=== PATIENT | male | born 1990 | race Caucasian/White ===

== ENCOUNTER 2021-12-12 04:35 | Emergency (ER) | payer OTHER ==
[~2021-12-12] VITALS: Ht 188 cm; Wt 95.3 kg
[2021-12-12 04:35] VITALS: BP 110/69
--- NOTE | 2021-12-12 04:38 | NUR ---
MONO COMER, TAKEN TO CHAIR
--- NOTE | 2021-12-12 04:53 | NUR ---
PATIENT BIB [employer]. PATIENT EXAMINED BY DR. HOLT. PATIENT MEDICALLY CLEARED AND RELEASED IN CUSTODY IN STABLE CONDITION. ORIGINAL PRE-BOOK FORM GIVEN TO OFFICER [place], #[id number].
== END 2021-12-12 04:53 | disposition home or self-care (01) ==
LOC: MED 04:35
DX: Z02.89 Encounter for other administrative examinations (principal)
CPT/HCPCS: 99283